=== PATIENT | female | born 1955 | race Caucasian/White ===

== ENCOUNTER → 2023-01-21 | Day surgery (SDC) | payer MEDICARE ==
[2023-01-15 11:42] LABS: BASOPHILS % 0.5 % (0.0-1.0); EOSINOPHILS # (AUTO) 0.2 (0.0-0.4); EOSINOPHILS % 3.4 % (0.0-6.0); HEMATOCRIT 32.5 % (34.2-44.1); HEMOGLOBIN 10.8 g/dL (12.0-16.0); LYMPHOCYTES # (AUTO) 1.4 (1.0-3.2); LYMPHOCYTES % 23.7 % (18.0-39.1); MEAN CORPUSCULAR HEMOGLOBIN 29.9 pg (28-32); MEAN CORPUSCULAR HGB CONC 33.2 g/dL (31-35); MONOCYTES # (AUTO) 0.5 (0.2-0.8); MONOCYTES % 8.8 % (4.4-11.3); NEUTROPHILS # (AUTO) 3.7 (2.1-6.9); NEUTROPHILS % 63.3 % (38.7-80.0); PLATELET COUNT 218 x10e3/uL (140-360); RED BLOOD COUNT 3.61 x10e6/uL (3.6-5.1); RED CELL DISTRIBUTION WIDTH 11.3 % (11.7-14.4)
[~2023-01-21] MED LIST: AMLODIPINE BESYL5 MG PO; ARMOUR THYROID60 MG PO; ATARAX PO; CALCIUM CARBON500 MG PO; DRAMAMINE50 MG PO; DUEXIS 800-26.1 EACH PO; FENTANYL CITRATE/PF 100MCG/2 ML INJ ONE; GLYCOPYRROLATE INJ 0.2 MG/ML VIAL ONE; KEFLEX125 MG/5 M PO; LACTATED RINGER'S 1,000 ML ONE; LASIX20 MG PO; LEXAPRO10 MG PO; LIBRAX CAPSULE1 EACH PO; LIDOCAINE HCL 2% LOCAL INJ 5 ML SDV VIAL INJ ONE; LISINOPRIL10 MG PO; METOCLOPRAMIDE HCL 10 MG/2ML VIAL ONE; MIDAZOLAM HCL 2 MG/2 ML VIAL ONE; MIRTAZAPINE15 MG PO; MYRBETRIQ50 MG PO; NEURONTIN300 MG PO; NORCO 10MG-325MG1 EA PO; NUTRAFOL PO; OMEPRAZOLE PO; ONDANSETRON HCL INJ 2MG/ML 2ML 2 MG/ML VIAL ONE; ONDANSETRON ODT8 MG PO; OTEZLA30 MG PO; OXYCONTIN20 MG PO; PHENERGAN PO; POVIDONE IODINE 0.05% 0.05 % ML PO ONE; PROPOFOL IV EMULSION 10 MG/ML 20 ML VIAL ONE; RANITIDINE HCL150 MG PO; SODIUM BICARBONATE PO; SODIUM CHLORI1000 MG PO; SPIRONOLACTONE25 MG PO; TIZANIDINE HCL4 M1 PO; TOPROL XL50 MG PO; TORSEMIDE20 MG PO; VALIUM10 MG PO; VIBRYD PO; VITAMIN D325 MCG; XIFAXAN550 MG PO; ZYRTEC10 M3 PO
[2023-01-21 10:07] VITALS: TEMP 98.2
[2023-01-21 10:35] VITALS: BP 114/70; PULSE 62; RESP 16; O2SAT 98
== END | disposition home or self-care (01) ==
LOC: OR 07:58
PROVIDERS: ATTEND Internal Medicine Gastroenterology
DX: K29.70 Gastritis, unspecified, without bleeding (principal); K31.84 Gastroparesis; K21.00 Gastro-esophageal reflux disease with esophagitis, without bleeding; B48.8 Other specified mycoses; K44.9 Diaphragmatic hernia without obstruction or gangrene; K76.0 Fatty (change of) liver, not elsewhere classified; I50.9 Heart failure, unspecified; M47.812 Spondylosis without myelopathy or radiculopathy, cervical region; N20.0 Calculus of kidney; N39.0 Urinary tract infection, site not specified; M06.9 Rheumatoid arthritis, unspecified; L40.9 Psoriasis, unspecified; F41.9 Anxiety disorder, unspecified; Z88.0 Allergy status to penicillin; Z88.8 Allergy status to other drugs, medicaments and biological substances; Z88.6 Allergy status to analgesic agent; Z01.810 Encounter for preprocedural cardiovascular examination; Z01.812 Encounter for preprocedural laboratory examination; Z79.899 Other long term (current) drug therapy; Z68.31 Body mass index [BMI] 31.0-31.9, adult; Z95.0 Presence of cardiac pacemaker
CPT/HCPCS: 36415; 43239; 85025; 88305; 88342; 93005; J2001; J2250; J2405; J2704; J2765; J3010; J7121; 88312